=== PATIENT | female | born 1965 | race Caucasian/White ===

== ENCOUNTER → 2022-12-02 | Outpatient (CLI) | payer OTHER ==
--- NOTE | 2022-12-02 12:35 | MR ---
EXAMINATION TYPE: MR shoulder LT wo con DATE OF EXAM: 12/02/2022 12:17 PM COMPARISON: NONE HISTORY: M25.512 PAIN IN LEFT SHOULDER TECHNIQUE: Multiplanar multispin echo imaging of the left shoulder was performed. FINDINGS: Rotator cuff : There is heterogeneity of the supraspinatus tendon compatible with chronic tendinopath y. Small partial last bursal surface tear is seen at the level of the cortical zone. There is no comp lete or bursal/articular sided partial rotator cuff tear. The subscapularis constituent of the rotato r cuff is intact. Bursa: No bursal effusion or thickening is seen. Musculature: There is no muscular tear, contusion, or atrophy. Acromioclavicular joint : There are moderate degenerative changes of the acromioclavicular joint. Th ere is no anterior or lateral acromial downsloping. Small subacromial spur results in mild impingemen t. Osseous structures : There are no fractures or regions of abnormal bone marrow signal intensity. Long biceps tendon : The biceps tendon is normally situated within the bicipital groove. No complete or partial biceps tendon tear is present. Glenohumeral Joint fluid : There is no glenohumeral joint effusion. Cartilage and Bone : No focal hyaline cartilage defects are noted. No Hill-Sachs, reverse Hill-Sachs, or bony Bankart lesions are seen. Labrum : There are no SLAP or soft tissue Bankart lesions. No paralabral cysts are seen. OTHER FINDINGS : There is an ovoid 7 x 2 mm structure seen adjacent to the subscapularis tendon seen best on axial image 22 of 33 sequence 401 which could reflect a small loose body. IMPRESSION: 1. Chronic tendinopathy supraspinatus tendon with small partial tear seen at its bursal surface. 2.There is an ovoid 7 x 2 mm structure seen adjacent to the subscapularis tendon seen best on axial i mage 22 of 33 sequence 401 which could reflect a small loose body.
== END | disposition home or self-care (01) ==
LOC: RADMRIMAIN 11:12
PROVIDERS: ATTEND Orthopaedic Surgery
DX: M75.112 Incomplete rotator cuff tear or rupture of left shoulder, not specified as traumatic (principal)

== ENCOUNTER → 2023-01-13 | Outpatient (CLI) | payer OTHER ==
[2023-01-13 16:50] LABS: Anion Gap 11.7 mmol/L (4.00-12.00); Basophils # (A) 0.06 X 10*3/uL (0.00-0.10); Carbon Dioxide 24.3 mmol/L (21.6-31.8); Eosinophils # (A) 0.13 X 10*3/uL (0.04-0.35); Eosinophils % (A) 2.1 %; HGB 17.4 g/dL (12.0-15.0); Lymphocytes # (A) 2.29 X 10*3/uL (0.90-5.00); Lymphocytes % (A) 37.2 %; MCH 32.4 pg (27.0-32.0); MCHC 32.2 g/dL (32.0-37.0); MCV 100.6 FL (80.0-97.0); Mean Platelet Volume 9.9 FL (9.5-12.2); Monocytes # (A) 0.39 X 10*3/uL (0.20-1.00); Monocytes % (A) 6.3 %; NRBC Per 100 WBC 0 X 10*3/uL (0.00-0.01); Neutrophils # (A) 3.26 X 10*3/uL (1.80-7.70); Neutrophils % (A) 53.1 %; Platelet Count 328 X 10*3/uL (140-440); Potassium 4.5 mmol/L (3.5-5.5); RBC 5.37 X 10*6/uL (4.10-5.20); RDW 12.9 % (11.5-14.5); WBC 6.15 X 10*3/uL (4.50-10.00)
== END | disposition home or self-care (01) ==
LOC: LABWHC1 10:53
PROVIDERS: ATTEND Orthopaedic Surgery
DX: Z01.812 Encounter for preprocedural laboratory examination (principal); M75.42 Impingement syndrome of left shoulder; I45.10 Unspecified right bundle-branch block; I23.2 Ventricular septal defect as current complication following acute myocardial infarction; R00.1 Bradycardia, unspecified; R94.31 Abnormal electrocardiogram [ECG] [EKG]
CPT/HCPCS: 36415; 80051; 85025; 93005

== ENCOUNTER 2023-01-22 05:44 | Day surgery (SDC) | payer OTHER ==
[2023-01-16 11:01] VITALS: BMI 34.0
--- NOTE | 2023-01-21 21:25 | HP ---
HISTORY AND PHYSICAL DATE OF SURGERY: 01/22/2023. HISTORY OF PRESENT ILLNESS: Eunice Cook is a 57-year-old patient seen with progressive left shoulder pain after having treatment options discussed status post left shoulder arthroscopy. Consent regarding procedure obtained. PAST MEDICAL HISTORY: Hypothyroidism. PAST SURGICAL HISTORY: Hysterectomy, right shoulder arthroscopy. DAILY MEDICATIONS: 1. Levothyroxine. 2. Motrin. 3. Tylenol. ALLERGIES: Codeine. SOCIAL HISTORY: Smokes cigarettes. PHYSICAL EVALUATION OF THE LEFT SHOULDER: Flexion is 90 degrees. Abduction is 90 degrees. External rotation is 40 degrees with weakness and pain. She has tenderness along the anterolateral acromion and rotator cuff insertion site. Impingement is positive at 90. Cross-body adduction sign is positive. Drop-arm sign is positive. Distal neurovascular exam is intact. IMAGING STUDIES: Radiographs of the left shoulder revealed a type 2 acromion evidence for acromioclavicular joint osteoarthritis and cystic changes of the tuberosity. MRI of left shoulder revealed a partial rotator cuff tendon tear, acromioclavicular joint osteoarthritis, and loose body. IMPRESSION: 1. Left shoulder impingement with partial rotator cuff tear. 2. Left shoulder acromioclavicular joint osteoarthritis. 3. Left shoulder loose body. 4. Hypothyroidism. PLAN: Left shoulder arthroscopy with subacromial decompression, arthroscopic rotator cuff repair, Melchor procedure, removal of loose body and debridement. MMODL / IJN: [id number] /
[2023-01-22] MEDS ORDERED: ONDANSETRON 4 MG/2 ML VIAL IVP ONE (06:08)
[2023-01-22] MEDS ORDERED: DEXAMETHASONE SOD PHOSPHATE 4 MG/ML 1 ML VIAL IV ONE (06:08)
[2023-01-22] MEDS ORDERED: LACTATED RINGERS 1,000 ML IV SCH (06:08)
[2023-01-22] MEDS ORDERED: LIDOCAINE 1% (10MG/ML) FOR IV START INTRADERMA PRN (06:08)
[2023-01-22] MEDS ORDERED: droPERidol 5 MG/2 ML VIAL IVP ONE (06:08)
[2023-01-22] MEDS ORDERED: MIDAZOLAM 2 MG/2 ML VIAL IVP ONE (06:52)
[2023-01-22] MEDS ORDERED: fentaNYL (PF) 50 MCG/ML 2 ML AMP IV PRN (07:00)
[2023-01-22] MEDS ORDERED: MIDAZOLAM 2 MG/2 ML VIAL ONE (07:25)
[2023-01-22] MEDS ORDERED: LIDOCAINE 1% INJ 10MG/ML (20 ML MDV) ONE (07:25)
[2023-01-22] MEDS ORDERED: ROPIVACAINE 5 MG/ML 30 ML VIAL ONE (07:25)
[2023-01-22] MEDS ORDERED: fentaNYL (PF) 50 MCG/ML 2 ML AMP ONE (07:25)
[2023-01-22] MEDS ORDERED: DEXAMETHASONE SOD PHOSPHATE 4 MG/ML 1 ML VIAL ONE (07:25)
[2023-01-22] MEDS ORDERED: SUCCINYLCHOLINE CHLORIDE 200 MG/10 ML VIAL IV ONE (07:25)
[2023-01-22] MEDS ORDERED: LIDOCAINE 4% LTA KIT (4 ML) TOPICAL ONE (07:25)
[2023-01-22] MEDS ORDERED: PROPOFOL 10 MG/ML 20 ML VIAL IV ONE (07:25)
[2023-01-22] MEDS ORDERED: ALBUTEROL NEBULIZED 2.5 MG/3 ML INHALATION ONE (09:13)
--- NOTE | 2023-01-22 09:22 | P.OP ---
Date of Procedure: 01/22/23 Preoperative Diagnosis: Left shoulder impingement Postoperative Diagnosis: 1. Left shoulder rotator cuff tear 2. Left shoulder bicipital tendinitis 3. Left shoulder impingement 4. Left shoulder acromioclavicular joint osteoarthritis Procedure(s) Performed: 1. Left shoulder arthroscopic rotator cuff repair 2. Left shoulder arthroscopic biceps tenodesis 3. Left shoulder arthroscopic subacromial decompression 4. Left shoulder arthroscopic Melchor procedure Implants: 3Arthrex 4.75 swivel lock anchors 2Arthrex 5.5 swivel lock anchors Anesthesia: GETA, regional (Interscalene block) Surgeon: Beltran Grubbs Forming Press Operator #1: Massimo Kelley Estimated Blood Loss (ml): 12 Pathology: none sent Condition: stable Disposition: PACU Indications for Procedure: 57-year-old patient seen with progressive left shoulder pain. After treatment options were discussed, she elected to proceed with arthroscopy. Operative Findings: see description of procedure Description of Procedure: Patient underwent an interscalene block by department of anesthesia. The patient was then taken to the operative suite. The patient underwent a general anesthetic by the department of anesthesia. The patient was placed into a lateral position and secured. There was appropriate padding of the bony prominence. Left shoulder was then prepped and draped in normal sterile orthopedic fashion. We placed the extremity in 10 pounds of longitudinal traction. A posterior incision was now made for a posterior working portal site. The trocar and cannula were inserted into the glenohumeral joint. Arthroscopy was initiated. Spinal needle was now inserted anteriorly, to ascertain the anterior working portal site. An incision was now made in that area, a trocar was inserted followed by a probe. There was some hyperemia long head biceps tendon consistent with bicipital tendinitis. I could see a large rotator cuff tendon tear. I decided to proceed with an arthroscopic biceps tenodesis. I placed a trocar through the anterior portal site. I performed a loop and tack stitch through the biceps tendon. I released the biceps from the superior labrum. With the assistance of Sixto WANG punch hole at the anterior interval for insertion of an anchor. I passed the suture through the eyelet of an Arthrex 4.75 swivel lock anchor. I placed the eyelet into the pre-punch hole and held it there while Sixto WANG tension the suture and the anchor was good fixation noted. Residual suture limbs were clipped. We had an excellent appearing biceps tenodesis. Utilizing the posterior working portal site, the trocar and cannula were inserted into the subacromial space. Arthroscopy initiated. I made an incision 2 fingerbreadths lateral to the acromion. I introduced my trocar followed by my ArthroCare ablator. I now began ablating thick subacromial bursal tissue, which exposed the undersurface of the anterior acromion. There was diminished subacromial space. There was a very prominent anterior acromion. A motorized bur was introduced and a subacromial decompression was performed. I also excised some osteophytes off the inferior aspect of the distal clavicle. The AC joint was visualized and noted to be fairly arthritic. The motorized bur was introduced in the anterior portal site and a Melchor procedure was performed without difficulty, decompressing the AC joint nicely. I turned my attention to the rotator cuff. There was a 2.5 cm rotator cuff tear. I debrided the margins getting down to stable tendon tissue. I introduced my motorized bur and abraded the footprint area, getting some petechial bleeding. I now made an accessory portal site off the lateral aspect of the acromion. I punched [] holes medial for medial row fixation with the assistance of Sixto WANG carefully tapping the punch with a mallet as I held the punch and the camera. I now introduced both anchors into the pre-punched holes and Sixto WANG tapped them with the mallet as I held anchors and the camera. Sixto WANG now screwed the anchors in place a while I held the anchor guide and camera. All 8 limbs of suture were now passed through good bites of rotator cuff tendon. I now punched 2 holes for lateral row fixation again I held the punch and camera while Sixto WANG used a mallet to tap in the punch. We decided to proceed with 5.5 anchors for the lateral fixation. We now passed sutures through both anchors and individually I introduced the anchors into the pre-punch holes I held the anchor guide in position with one hand holding the camera with the other hand while Sixto WANG tensioned the sutures and screwed in the anchors one at a time. All residual suture limbs were now clipped. We had good compression of the tendon along the entire footprint. Instruments now removed from the portal sites. All portal sites were approximated with nylon suture. Sterile dressings were applied followed by a shoulder immobilizer. Massimo WANG assisted in all aspects of this case. The patient was awakened, transferred to a bed, and taken to recovery in stable condition.
[2023-01-22 10:03] VITALS: TEMP 97.4
[2023-01-22 10:29] VITALS: RESP 18
[2023-01-22 10:54] VITALS: BP 140/78; PULSE 70
--- NOTE | 2023-01-22 15:06 | P.ANPRN ---
Procedure Note - Anesthesia - Nerve Block Performed Left Interscalene Single Time Out Performed: Yes Date of Procedure: 01/22/23 Procedure Start Time: 06:52 Procedure Stop Time: 06:57 Location of Patient: PreOp Indication: Acute Post-Operative Pain, Requested by Surgeon Sedation Type: Sedate with meaningful contact maintained Preparation: Sterile Prep Position: Supine Needle Types: Facet Needle Gauge: 21 Ultrasound used to visualize needle placement: Yes Ultrasound used to observe medication spread: Yes Blood Aspirated: No Pain Paresthesia on Injection Noted: No Resistance on Injection: Normal Image Stored and Saved: Yes Events: Uneventful and Well Tolerated (Ropivacaine 0.5% 25 mL plus dexamethasone 4 mg)
== END 2023-01-22 11:24 | disposition home or self-care (01) ==
LOC: OR 05:44
PROVIDERS: ATTEND Orthopaedic Surgery
DX: M75.102 Unspecified rotator cuff tear or rupture of left shoulder, not specified as traumatic (principal); M75.22 Bicipital tendinitis, left shoulder; M19.012 Primary osteoarthritis, left shoulder; G89.18 Other acute postprocedural pain; F17.210 Nicotine dependence, cigarettes, uncomplicated; J44.9 Chronic obstructive pulmonary disease, unspecified; E03.9 Hypothyroidism, unspecified; Z79.890 Hormone replacement therapy; Z79.899 Other long term (current) drug therapy; Z90.710 Acquired absence of both cervix and uterus; Z88.5 Allergy status to narcotic agent; Z91.040 Latex allergy status; Z98.890 Other specified postprocedural states
CPT/HCPCS: 64415; 29827; 29828; 29826; 29824; C1713 ×3; J2250; J0330; J1100; J0690; J2405; J2001; J3010; J2795; J2704

== ENCOUNTER 2023-06-24 10:15 | Day surgery (SDC) | payer OTHER ==
[2023-06-19 14:24] VITALS: BMI 32.9
--- NOTE | 2023-06-23 10:33 | P.HPOR ---
History of Present Illness H&P Date: 06/23/23 Subjective: This is a 58 year old female that presents today for initial evaluation regarding a 8 month history of progressively worsening left wrist pain. She states in the middle of August 2022. She had a fall resulting in a left distal radius fracture that was treated conservatively in a removable wrist brace by Dr. Grubbs. At that same time she also had a rotator cuff injury, which required surgery at that time. She has completed therapy over the last several months and feels the left shoulder is recovered now. She complains of continued pain and deformity in her left wrist. She has pain with any type of flexion or extension of the wrist. She notes the wrist fatigues easily and often has difficulty opening jars and carrying anything with the hand. She is a history of prior distal radius fracture in 2004 that was treated conservatively. She states after this initial injury in 2004 she had no issues with the wrist up until the most recent injury August 2022. She also states she has chronic numbness in the small and ring finger that has been present for the past 15 years, she states she can live with the numbness and tingling and that the wrist pain is her main concern. Physical Examination: LUE: AIN/PIN/Radial/Ulnar/Median motor intact. Radial/Ulnar/Median SILT. 2+/4 Radial/Ulnar pulses palpated. 5/5 APB, 5/5 FDI. Negative Finkelsteins, negative CMC grind, negative Durkan's compression. Wrist Flexion 40 degrees, Extension to 90 degrees. Pain at terminal flexion and pain with terminal ulnar deviation of the wrist. DRUJ stable to shuck. Imaging: X-Rays of the left wrist, 3 view taken in the office today demonstrates a left distal radius malunion with approximately 32 of dorsal angulation measured. 3.5 mm of ulnar positivity present. Impression: 1.) Left distal radius symptomatic malunion. 2.) Left chronic Cubital tunnel syndrome 3.) Left wrist ulnar impaction syndrome Plan: Diagnosis and treatment options were discussed with the patient. We discussed continued observation versus left distal radius corrective osteotomy. Due to her continued pain, her high activity demands and younger age, she states she would like to go forward with left distal radius malunion corrective osteotomy. Risks and benefits of surgery including bleeding, infection, damage to surrounding tissue, need for further surgery, residual numbness were discussed and the patient wished to go forward with surgery.The patient was agreeable with this plan. CC: Sixto Johnson PA-C -Eldon Guadalupe DO Orthopedic Hand/Upper Extremity Surgeon Past Medical History Past Medical History: Cancer, Thyroid Disorder Additional Past Medical History / Comment(s): ON ANTIBIOTICS FOR TICK BITE, SKIN CANCER, History of Any Multi-Drug Resistant Organisms: None Reported Past Surgical History: Cholecystectomy, Hysterectomy, Orthopedic Surgery Additional Past Surgical History / Comment(s): BILAT SHOULDER SURGERY, CYSTOCELE, RECTOCELE, COLONOSCOPY, BILAT CATARACTS REMOVED, Past Anesthesia/Blood Transfusion Reactions: No Reported Reaction Smoking Status: Current every day smoker - Past Family History Father Family Medical History: Cancer Additional Family Medical History / Comment(s): LUNG Mother Family Medical History: Cancer Additional Family Medical History / Comment(s): LUNG Medications and Allergies Home Medications Medication Instructions Recorded Confirmed Type Levothyroxine Sodium 200 mcg PO DAILY 01/16/23 01/22/23 History HYDROcodone/APAP 7.5-325MG [[place] 1 each PO Q6HR PRN #28 tab 01/22/23 Rx 7.5] Allergies Allergy/AdvReac Type Severity Reaction Status Date / Time codeine Allergy Unknown Itching Verified 06/19/23 13:36 latex Allergy Unknown red Verified 06/19/23 13:36 irritated, dry skin morphine Allergy Unknown red, Verified 06/19/23 13:36 [From Duramorph (PF)] swelling and itching Physical Examination Osteopathic Statement: *. No significant issues noted on an osteopathic structural exam other than those noted in the History and Physical/Consult.
[~2023-06-24 10:15] MED LIST: HYDROmorphone 0.5 MG/0.5 ML SYRINGE IVP PRN; LIDOCAINE 1% (10MG/ML) FOR IV START INTRADERMA PRN; MIDAZOLAM 2 MG/2 ML VIAL IV PRN; fentaNYL (PF) 50 MCG/ML 2 ML AMP IVP PRN
[2023-06-24] MEDS: LACTATED RINGERS 1,000 ML IV SCH (10:43)
[2023-06-24] MEDS ORDERED: ONDANSETRON 4 MG/2 ML VIAL ONE (10:52)
[2023-06-24] MEDS: ONDANSETRON 4 MG/2 ML VIAL IVP ONE (10:54)
[2023-06-24] MEDS: DEXAMETHASONE SOD PHOSPHATE 4 MG/ML 1 ML VIAL IV ONE (10:54)
[2023-06-24] MEDS: MIDAZOLAM 2 MG/2 ML VIAL IVP ONE (11:16)
[2023-06-24] MEDS ORDERED: KETAMINE HCL IN 0.9 % NACL 50 MG/5 ML SYRINGE ONE (11:32)
[2023-06-24] MEDS ORDERED: fentaNYL (PF) 50 MCG/ML 2 ML AMP ONE (11:32)
[2023-06-24] MEDS ORDERED: ROPIVACAINE 5 MG/ML 30 ML VIAL ONE (11:32)
[2023-06-24] MEDS ORDERED: DEXAMETHASONE SOD PHOSPHATE 4 MG/ML 1 ML VIAL ONE (11:32)
[2023-06-24] MEDS ORDERED: ePHEDrine 50 MG/ML 1 ML VIAL ONE (11:32)
[2023-06-24] MEDS ORDERED: MIDAZOLAM 2 MG/2 ML VIAL ONE (11:32)
[2023-06-24] MEDS ORDERED: PROPOFOL 10 MG/ML 20 ML VIAL IV ONE (11:32)
[2023-06-24 13:37] VITALS: TEMP 96.9
[2023-06-24] MEDS: LACTATED RINGERS 1,000 ML IV ONE (13:43)
[2023-06-24 14:30] VITALS: RESP 16
[2023-06-24 15:22] VITALS: BP 145/88; PULSE 92
--- NOTE | 2023-06-24 17:24 | P.OP ---
Date of Procedure: 06/24/23 Preoperative Diagnosis: Left distal radius fracture malunion Postoperative Diagnosis: Left distal radius fracture malunion Procedure(s) Performed: Left distal radius fracture malunion osteotomy Implants: [place] standard width short length volar distal radius plate. Anesthesia: regional Surgeon: Eldon Guadalupe Rubber Goods Inspector Tester #1: Josiah Paz Estimated Blood Loss (ml): 0 Pathology: none sent Condition: stable Disposition: PACU Description of Procedure: This is a 58 year old female who sustained a left displaced intra-articular distal radius fracture that ultimately healed in a malunited position and developed subsequent pain, limited range of motion and deformity and presents today for distal radius malunion osteotomy. Risks and benefits of surgery were discussed with the patient including bleeding, damage to surrounding tissue, infection, need for further surgery as well as risks of anesthesia including pulmonary embolism and even and the patient wished to proceed with surgical intervention. The patients was seen in the pre-operative area by myself. Consent and H&P were completed and updated. The correct extremity was marked in the pre-operative area by myself and all other questions were answered. Operative Narrative: The patient was brought to the operating room by the department of anesthesia. They remained on the portable stretcher and a rolling hand table was brought to the side of the operative extremity. Pre-operative time out was performed indicating the correct patient, procedure and laterality. All in the room agreed. Pre-operative antibiotics were given prior to skin incision. The patient was then drifted off to sleep by the department of anesthesia. A nonsterile tourniquet was then applied to the operative extremity and the left upper extremity was then prepped and draped in normal sterile fashion. The operative extremity was the exsanguinated with an esmarch bandage and the tourniquet was inflated to 250mmHg. A longitudinal incision centered over the FCR tendon was made with a 15-blade scalpel. Blunt dissection was taken down to the FCR tendon sheath using Bovie cautery for meticulous hemostasis. The FCR sheath was opened with tenotomy scissors. The floor of the FCR sheath was then incised with a 15-blade scalpel and the FPL tendon and muscle belly was swept bluntly in an ulnar direction to reveal the pronator quadratus. Pronator quadratus was sharply incised with a 15-blade scalpel along the radial border of the distal radius, coming across transversely parallel to the joint at the level of the watershed line, radial artery was identified and protected. Periosteal elevator was then used to elevate the pronator quadratus off the distal radius from a radial to ulnar fashion. Brachioradialis tenon was released and the surrounding healed periosteum was sharply elevated with 15 blade scalpel dorsally taking care to protect the extensor tendons of the wrist and hand. Satisfied with soft tissue releases attention was then brought to the osteotomy site. Under live fluoroscopy the osteotomy line was mapped out with marking pen making the cut parallel to the joint line in both the coronal and sagittal planes. While protecting surrounding neurovascular structures the osteotomy was initiated at the site of the healed fracture. Correct angle of cut was confirmed on x-ray and after using the oscillating saw to initiate the osteotomy an osteotome was used to complete the osteotomy taking care to not damage the extensor tendons sitting directly on the dorsal cortex. After completion of the osteotomy a narrow width and short length [place] volar locking plate was chosen to fit the patients anatomy best. This was placed on the distal radius under direct visualization and the K- wire was placed in the ulnar most k-wire hole in the proximal row. Fluoroscopy was then utilized to confirm correct placement of plate in the radial/ulnar plane of the distal fragment and distal k-wire placement was confirmed to be proximal to the subchondral bone on 20 degree elevated lateral view confirming extra-articular screw placement. Distal locking screws were placed leaving the proximal portion of the plate in a kickstand position. After securing the distal rows with locking screws the proximal portion of the plate was then levered back to the radial shaft and held with a K-wire while correcting both the sagittal and coronal deformity and pulling traction. Episcopal of volar tilt and radial inclination was appreciated. Final imaging was taken confirming extra-articular placement of distal screws at DRUJ and radiocarpal joint. The wound was then irrigated. Subcutaneous closure was performed with 4-0 Monocryl followed by skin closure with running 4-0 Monocryl suture. Sterile dressing consisting of adaptic, 4x4s, and a volar plaster splint was applied. Tourniquet was let down and the hand had immediate perfusion. The patient was then woken by the department of anesthesia and transferred to PACU in stable condition. The patient was then woken by the department of anesthesia and transferred to PACU in stable condition. Josiah WANG was present for the case and assisted in major portions of the operation and hardware placement. Eldon Guadalupe D.O. Orthopedic Hand/Upper Extremity Surgeon
== END 2023-06-24 14:46 | disposition home or self-care (01) ==
LOC: OR 10:15
PROVIDERS: ATTEND Orthopaedic Surgery Hand Surgery
DX: S52.502P Unspecified fracture of the lower end of left radius, subsequent encounter for closed fracture with malunion (principal); E07.9 Disorder of thyroid, unspecified; F17.200 Nicotine dependence, unspecified, uncomplicated; Z85.828 Personal history of other malignant neoplasm of skin; Z91.040 Latex allergy status; Z90.49 Acquired absence of other specified parts of digestive tract; Z90.710 Acquired absence of both cervix and uterus; Z79.890 Hormone replacement therapy; X58.XXXD Exposure to other specified factors, subsequent encounter
CPT/HCPCS: 64415; 25400; C1713; J2250; J1100; J0690; J2405; J3010; J2795; J2704